=== PATIENT | male | born 1995 | race Caucasian/White ===

== ENCOUNTER 2022-09-14 19:31 | Inpatient (IN) | payer MEDICAID ==
[~2022-09-14] VITALS: Ht 162.6 cm; Wt 80.7 kg
--- NOTE | 2022-09-14 19:32 | NUR ---
PT BROUGHT TO BED 10 VIA WHEELCHAIR
[2022-09-14 19:34] VITALS: BP 121/64
[2022-09-14] MEDS ORDERED: ACETAMINOPHEN 325 MG TAB PO ONE (19:40)
[2022-09-14] MEDS ORDERED: NACL 0.9% 1,000 ML IV ONE (19:40)
[2022-09-14 20:14] LABS: HEMATOCRIT 38.7 % (36-52); HEMOGLOBIN 12.8 g/dL (12.0-18.0); MEAN CORPUSCULAR HEMOGLOBIN 31 pg (27-31); MEAN CORPUSCULAR HGB CONC 33 g/dL (33-37); MEAN CORPUSCULAR VOLUME 92.5 fL (80-94); PLATELET COUNT (AUTO) 227 K/uL (140-450); RED BLOOD CELL COUNT(AUTO) 4.18 MIL/uL (4.20-6.10); RED CELL DISTRIBUTION WIDTH 13.5 % (11.6-13.7); WHITE BLOOD COUNT (AUTO) 23.8 K/uL (4.8-10.8)
[2022-09-14 20:31] LABS: ALBUMIN 3.9 g/dL (3.4-5.0); ANION GAP 10.3 (8-16); ASPARTATE AMINOTRANSFERASE 17 U/L (15-37); CARBON DIOXIDE 29.1 mmol/L (21-32); CHLORIDE 98 mmol/L (98-107); CREATININE 0.9 mg/dL (0.6-1.3); GFR ARICAN-AMERICAN 130 mL/min (>90); GLUCOSE 131 mg/dL (74-106); POTASSIUM 3.4 mmol/L (3.5-5.1); SODIUM SERUM 134 mmol/L (136-145); TOTAL BILIRUBIN 2.1 mg/dL (0.0-1.0); UREA NITROGEN, BLOOD 16 mg/dL (7-18)
[2022-09-14 20:32] LABS: PROTHROMBIN TIME 10.6 secs (10.8-13.4)
[2022-09-14 20:41] LABS: LYMPHOCYTES % (MANUAL) 4 % (20-46)
[2022-09-14] MEDS ORDERED: VANCOMYCIN 1,000 MG in DEXTROSE 5% 250 ML IV ONE (21:00)
[2022-09-14] MEDS ORDERED: VANCOMYCIN 1,000 MG VIAL ONE (21:06)
--- NOTE | 2022-09-14 21:30 | NUR ---
Urine and swabs collected sent to lab
[2022-09-14 21:46] LABS: APPEARANCE,URINE CLEAR (CLEAR); BILIRUBIN,URINE 1+ (NEGATIVE); BLOOD, URINE NEGATIVE (NEGATIVE); COLOR,URINE YELLOW (YELLOW); LEUKOCYTE ESTERASE ,URINE NEGATIVE (NEGATIVE); NITRITE, URINE NEGATIVE (NEGATIVE); PH,URINE 6.5 (5.0-9.0); UGLUCOSE NEGATIVE (NEGATIVE)
[2022-09-14] MEDS ORDERED: cefTRIAXone 1,000 MG VIAL ONE (22:27)
--- NOTE | 2022-09-14 22:50 | NUR ---
Report given to Maria De Jesus ERVIN regarding transfer of care and made aware of elevated temperature and that Dr. Camilo was contacted. Pt is awake and responsive at this time.
--- NOTE | 2022-09-14 22:50 | NUR ---
Pt temperature rechecked [address] Camilo awaiting response.
[2022-09-14 22:55] VITALS: BP 130/70
--- NOTE | 2022-09-14 23:54 | NUR ---
relayed to lizzette smallwood latest bmp - no ivf order , - but got bolus from er , bp 130 /70 , still w/ fever . t 100. 5 f - tylenol given p.o 3 hrs ago in er . on reg . diet , denies pain at this time . will do tsb .
--- NOTE | 2022-09-15 | NUR ---
waiting response from dr Rola smallwood
--- NOTE | 2022-09-15 02:00 | NUR ---
TSB - RE CHECK TEMP 100.1 , WILL CONT. TO MONITOR . CALL LIGHT WITHIN REACH .
[2022-09-15] MEDS ORDERED: NACL 0.9% 1,000 ML IV SCH (02:40)
--- NOTE | 2022-09-15 03:00 | NUR ---
TOOK WOUND PHOTO BY USING HOSPITAL IPHONE , BECAUSE OUR [facility] MEMORY CARD STUCK UP ON THE PRINTER , 2 PEOPLE TRIED TO REMOVE IT BUT WE CAN'T . TRIED TO BORROW MEMORY CARD TPO ICU AND ER - BUT THEY SAID THERE IS NO MEMORY CARD AVAILABLE IN THIER UNIT - WILL ENDORSE .
[2022-09-15 05:12] LABS: BASOPHILS % (AUTO) 0.2 % (0.0-2.0); EOSINOPHILS % (AUTO) 0.1 % (0.0-4.0); HEMATOCRIT 35.9 % (36-52); HEMOGLOBIN 11.9 g/dL (12.0-18.0); LYMPHOCYTES # (AUTO) 1.1 K/uL (2.0-11.5); LYMPHOCYTES % (AUTO) 6.4 % (20.5-51.1); MEAN CORPUSCULAR HEMOGLOBIN 31 pg (27-31); MEAN CORPUSCULAR HGB CONC 33 g/dL (33-37); MEAN CORPUSCULAR VOLUME 92.4 fL (80-94); MONOCYTES # (AUTO) 0.9 K/uL (0.8-1.0); MONOCYTES % (AUTO) 4.8 % (1.7-9.3); NEUTROPHILS # (AUTO) 15.9 K/uL (1.8-7.7); NEUTROPHILS % (AUTO) 88.5 % (42.2-75.2); PLATELET COUNT (AUTO) 189 K/uL (140-450); RED BLOOD CELL COUNT(AUTO) 3.88 MIL/uL (4.20-6.10); RED CELL DISTRIBUTION WIDTH 13.7 % (11.6-13.7)
[2022-09-15 05:20] LABS: ANION GAP 11.5 (8-16); CARBON DIOXIDE 28.2 mmol/L (21-32); CREATININE 0.8 mg/dL (0.6-1.3); POTASSIUM 3.7 mmol/L (3.5-5.1)
[2022-09-15 06:00] VITALS: BP 118/63
--- NOTE | 2022-09-15 06:00 | NUR ---
ROUNDS , NO S/SX OF ACUTE DISTRESS NOTED
[2022-09-15 08:00] VITALS: BP 133/93
--- NOTE | 2022-09-15 08:07 | NUR ---
ENDORSED FOR CONT. OF CARE .
--- NOTE | 2022-09-15 09:09 | NUR ---
PATIENT HAS BEEN SCREENED AND CATEGORIZED HIGH NUTRITION RISK. PATIENT WILL BE SEEN WITHIN 1-2 DAYS OF ADMISSION. 09/15/22-09/16/22 FNS REFERRAL AND CONSULT RECEIVED FOR UNHEALED WOUND AND PRESSURE ULCERS ON 09/15/22. REVIEWED BY YENIFER MACIAS RD
[2022-09-15 12:00] VITALS: BP 111/63
[2022-09-15] MEDS ORDERED: VANCOMYCIN PER PHARMACY MC PRN (12:25)
[2022-09-15] MEDS ORDERED: POTASSIUM CHLORIDE 10 MEQ TABER PO PRN (12:25)
[2022-09-15] MEDS: NACL 0.9% 1,000 ML IV SCH (12:25)
[2022-09-15] MEDS ORDERED: ACETAMINOPHEN 325 MG TAB PO PRN (12:25)
[2022-09-15] MEDS ORDERED: ONDANSETRON 4 MG/2 ML VIAL IVP PRN (12:25)
[2022-09-15] MEDS ORDERED: MAG SULF 2000 MG/WATER PREMIX 50 ML IV PRN (12:25)
[2022-09-15] MEDS ORDERED: HYDROcodone/APAP 7.5/325 MG 1 TAB PO PRN (12:25)
[2022-09-15] MEDS: VANCOMYCIN HCL 750 MG in DEXTROSE 5% 250 ML IV SCH ×2 (13:00→20:15)
[2022-09-15 13:14] LABS: PROTHROMBIN TIME 10.9 secs (10.8-13.4)
[2022-09-15 13:28] LABS: AMYLASE 29 U/L (25-115); CHOL/HDL RATIO 1.5 (1-4.5); FREE T4 (FREE THYROXINE) 1.03 ng/dL (0.76-1.46); HDL CHOLESTEROL 78 mg/dL (40-60); LDL (CALC) 31 mg/dL (60-100); LIPASE 112 U/L (73-393); MAGNESIUM 1.8 mg/dL (1.8-2.4); PHOSPHORUS 2.3 mg/dL (2.5-4.9); THYROID STIMULATING HORMONE 0.08 uIU/mL (0.34-3.74); TRIGLYCERIDES 47 mg/dL (30-150)
--- NOTE | 2022-09-15 13:29 | NUR ---
WENT TO COMPLETE EKG ON PT.PT HAS A LARGE BANDAGE ACROSS HIS CHEST COVERING WOUNDS, RT UNABLE TO OBTAIN EKG AT THIS TIME. PT STATED HE WAS IN IN PAIN, RN NOTIFIED.
--- NOTE | 2022-09-15 13:30 | NUR ---
DC PLANNING ASSESSMENT COMPLETE PLEASE REFER TO ASSESSMENT FOR ADDITIONAL DETAILS PT REPORTS DC PLAN IS TO RETURN TO HIS MOTHERS HOME. PT REPORTS HIS MOTHER WILL ALLOW FOR HIM TO STAY WITH HER. PT REPORTS MOTHER WITH PROVIDE TRANSPORTATION, WHEN CLEARED MEDICALLY BY PHYSICIAN. PT ACCEPTED EMERGENCY ASSISTANCE,MEDICATION ASSISTANCE AND HOMELESS RESOURCES PROVIDED BY SW. Addendum: 09/15/22 at 1332 by Omar CH Amended: Links added.
--- NOTE | 2022-09-15 14:21 | NUR ---
DC PLANN[age] YRS OLD MALE PATIENT WAS ADMITTED FROM HOME WITH A DX OF SEPSIS, RT LOWER EXT CELLULITIS. PATIENT HAS NO MEDICAL HX. CXR SHOWED RIGHT BASE INFILTRATE/ATELECTASIS. RAPID COVID TEST NEGATIVE. US VENOUS RLE NO DVT. XRAY RT TABULA/FIBULA SHOWED SEVERELY COMMINUTED FRACTURE OF THE MID FIBULA WITH FRAGMENTS SEEN. WBC 23.8 ON ADMISSION. ADMINISTERED IVF, IV ABX VANCOMYCIN AND ROCEPHIN. CONSULTED WITH ORTHO. DC PLAN TO GO HOME WHEN STABLE CM TO FOLLOW.
--- NOTE | 2022-09-15 15:11 | NUR ---
09/15/22 RD INITIAL ASSESSMENT COMPLETED PLEASE REFER TO NUTRITION ASSESSMENT UNDER CARE ACTIVITY FOR ESTIMATED NUTRITIONAL NEEDS. 1. CONTINUE REGULAR DIET TOLERATED 2. RECOMMEND PROSOURCE BID FOR WOUND SUPPORT -PROVIDES 120 KCAL AND [address] TO FOLLOW-UP 7 DAYS, LOW RISK REVIEWED BY YENIFER MACIAS RD
[2022-09-15 16:00] VITALS: BP 119/77
[2022-09-15 18:04] LABS: BARBITURATE, URINE NEGATIVE ng/ml (NEG <=200); BENZODIAZEPINE, URINE NEGATIVE ng/mL (NEG <=200); CANNABINOID, URINE NEGATIVE ng/mL (NEG <=50); COCAINE, URINE NEGATIVE ng/mL (NEG <=300); OPIATE, URINE NEGATIVE ng/mL (NEG <=2000); PHENCYCLIDINE SCREEN,URINE NEGATIVE ng/mL (NEG <=25)
--- NOTE | 2022-09-15 19:30 | NUR ---
RECEIVED REPORT FROM MORNING SHIFT NURSE. PT IS AOX4, WITH RELATIVE BEDSIDE, ON BEDREST, ABLE TO VERBALIZE NEEDS AND ABLE TO FOLLOW COMMANDS. PT IS ON ROOM AIR AND ON RENAL DIET. PT HAS BEDSIDE URINALS AND HAS AN IV ON LEFT AC GAUGE 20 RUNNING WITH NS AT 50ML/HR. PT HAS WOUND ON RIGHT LOWER LEG. PT DENIES PAIN AND NO S/S OF RESPIRATORY DISTRESS NOTED. ALL SAFETY MEASURES IMPLEMENTED. BED IN LOW POSITION AND CALL LIGHT WITHIN REACH.
[2022-09-15 20:00] VITALS: BP 117/65
--- NOTE | 2022-09-15 20:00 | NUR ---
PT WAS MOVED TO ROOM 105A FROM 126B DUE TO WATER SPILL OF THE ROOM. ALL BELONGINGS WAS WITH THE PT. RELATIVE WAS ALSO AWARE. ALL SAFETY MEASURES IMPLEMENTED. BED IN LOW POSITION AND CALL LIGHT WITHIN REACH.
[2022-09-15] MEDS: DOCUSATE SODIUM 100 MG GELCAP PO SCH (20:18)
[2022-09-15] MEDS: ENOXAPARIN 80 MG/0.8 ML SYR SUBQ SCH (20:18)
--- NOTE | 2022-09-15 20:18 | NUR ---
ALL SCHEDULED AND PRESCRIBED MEDICATION WAS GIVEN TO PT PER MD ORDER. ALL SAFETY MEASURES IMPLEMENTED. BED IN LOW POSITION AND CALL LIGHT WITHIN REACH.
--- NOTE | 2022-09-15 22:16 | NUR ---
SCHEDULED AND PRESCRIBED MEDICATION WAS GIVEN TO PT PER MD ORDER. ALL SAFETY MEASURES IMPLEMENTED. BED IN LOW POSITION AND CALL LIGHT WITHIN REACH.
[2022-09-16] VITALS: BP 109/64
--- NOTE | 2022-09-16 | NUR ---
PT IS ON SLEEP. CHEST RISE AND FALL SYMMETRICALLY NOTED. RESPIRATION IS EVEN AND UNLABORED. ALL SAFETY MEASURES IMPLEMENTED. BED IN LOW POSITION AND CALL LIGHT WITHIN REACH.
--- NOTE | 2022-09-16 02:00 | NUR ---
CHECKED TH PT STILL ON SLEEP. CHEST RISE AND FALL SYMMETRICALLY NOTED. RESPIRATION IS EVEN AND UNLABORED. ALL SAFETY MEASURES IMPLEMENTED. BED IN LOW POSITION AND CALL LIGHT WITHIN REACH.
[2022-09-16 04:00] VITALS: BP 112/72
--- NOTE | 2022-09-16 04:00 | NUR ---
ASSISTED PT TO BATHROOM. CRANBERRY JUICE WAS ALSO GIVEN. NO COMPLAIN OF PAIN. NO S/S OF RESPIRATORY DISTRESS NOTED. ALL SAFETY MEASURES IMPLEMENTED. BED IN LOW POSITION AND CALL LIGHT WITHIN REACH.
[2022-09-16 04:17] LABS: BASOPHILS # (AUTO) 0.1 K/uL (0.00-0.22); BASOPHILS % (AUTO) 0.5 % (0.0-2.0); EOSINOPHILS # (AUTO) 0.2 K/uL (0-0.4); EOSINOPHILS % (AUTO) 1.7 % (0.0-4.0); HEMATOCRIT 39.3 % (36-52); HEMOGLOBIN 12.8 g/dL (12.0-18.0); LYMPHOCYTES # (AUTO) 3.6 K/uL (2.0-11.5); LYMPHOCYTES % (AUTO) 31.4 % (20.5-51.1); MEAN CORPUSCULAR HEMOGLOBIN 30 pg (27-31); MEAN CORPUSCULAR HGB CONC 33 g/dL (33-37); MEAN CORPUSCULAR VOLUME 92.8 fL (80-94); MONOCYTES # (AUTO) 1.2 K/uL (0.8-1.0); MONOCYTES % (AUTO) 10.6 % (1.7-9.3); NEUTROPHILS # (AUTO) 6.4 K/uL (1.8-7.7); NEUTROPHILS % (AUTO) 55.8 % (42.2-75.2); PLATELET COUNT (AUTO) 202 K/uL (140-450); RED BLOOD CELL COUNT(AUTO) 4.23 MIL/uL (4.20-6.10); RED CELL DISTRIBUTION WIDTH 13.9 % (11.6-13.7); WHITE BLOOD COUNT (AUTO) 11.5 K/uL (4.8-10.8)
[2022-09-16 04:29] LABS: ANION GAP 11.3 (8-16); CARBON DIOXIDE 29.3 mmol/L (21-32); CREATININE 0.8 mg/dL (0.6-1.3); POTASSIUM 3.6 mmol/L (3.5-5.1)
[2022-09-16 04:33] LABS: MAGNESIUM 1.8 mg/dL (1.8-2.4)
[2022-09-16] MEDS: VANCOMYCIN HCL 750 MG in DEXTROSE 5% 250 ML IV SCH (04:40)
--- NOTE | 2022-09-16 07:23 | NUR ---
PT IS STABLE. ENDORSED PT TO MORNING SHIFT NURSE FOR CONTINUITY OF CARE.
--- NOTE | 2022-09-16 07:24 | NUR ---
RECEIVED REPORT FROM RN MEDICAL SURGICAL NURSE FOR CONTINUITY OF CARE. PATIENT LYING DOWN IN BED, SLEEPING, AROUSABLE BY VOICE. NO DISTRESS NOTED. PAIN WITHIN TOLERABLE ON RLE. IV SITE INTACT, PATENT, INFUSING IVF PER MD ORDERS. REVIEWED PLAN OF CARE WITH PATIENT. VERBALIZED UNDERSTANDING. WILL CONTINUE TO MONITOR.
[2022-09-16 08:00] VITALS: BP 116/70
[2022-09-16] MEDS: NACL 0.9% 1,000 ML IV SCH (08:24)
[2022-09-16] MEDS: PANTOPRAZOLE 40 MG INJ VIAL IVP SCH (08:24)
[2022-09-16] MEDS: DOCUSATE SODIUM 100 MG GELCAP PO SCH ×2 (08:25→20:23)
[2022-09-16] MEDS: ENOXAPARIN 80 MG/0.8 ML SYR SUBQ SCH ×2 (08:30→20:27)
--- NOTE | 2022-09-16 08:31 | NUR ---
SCHEDULED MEDICATIONS DUE GIVEN. WILL CONTINUE TO MONITOR.
--- NOTE | 2022-09-16 11:42 | NUR ---
WOUND CARE NOTE: PT. ADMITTED WITH RLE WOUND. DR. DESAI CONSULTED NO SURGICAL INTERVENTION AT THIS TIME. RLE MULTIPLE DRY SCAB. LATERAL ASPECT 1X1X0.3CM WOUND ,WOUND BED YELLOW/BROW, SMALL AMOUNT PURULENT DRAINAGE, MILD ODOR, [place] WOUND SKIN DRY, INTACT,SOFT NO ERYTHEMA, PAIN 0/10. POC DISCUSSED WITH PT. PT. NEED REINFORCEMENT. POC DISCUSS WITH PRIMARY RN MEAGAN. RECOMMENDATIONS: -CLEANSE RLE WOUND WITH WOUND CARE SOLUTION, PAT DRY. APPLY ALGINATE DRESSING AND COVER WITH DRY DRESSING QD AND PRN IF SOILING -ELEVATE RLE WITH PILLOWS
[2022-09-16] MEDS: VANCOMYCIN 1,000 MG in DEXTROSE 5% 250 ML IV SCH ×2 (12:57→20:23)
--- NOTE | 2022-09-16 12:57 | NUR ---
SCHEDULED MEDICATIONS DUE GIVEN. WILL CONTINUE TO MONITOR.
[2022-09-16] MEDS ORDERED: ALGINATE ROPE MC SCH (13:00)
--- NOTE | 2022-09-16 15:30 | NUR ---
PATIENT LYING DOWN IN BED, NO DISTRESS NOTED. WILL CONTINUE TO MONITOR.
[2022-09-16 16:00] VITALS: BP 104/61
--- NOTE | 2022-09-16 17:30 | NUR ---
P.T. NOTES P.T. EVAL COMPLETED; REFER TO EVAL FOR DETAILS.
--- NOTE | 2022-09-16 19:12 | NUR ---
GAVE REPORT TO GAMMA FACILITIES OPERATOR NURSE FOR CONTINUITY OF CARE. PATIENT IN STABLE CONDITION.
--- NOTE | 2022-09-16 19:13 | NUR ---
RECEIVED REPORT FROM MORNING SHIFT NURSE. PT IS AOX4, WITH RELATIVE BEDSIDE, ON BEDREST, ABLE TO VERBALIZE NEEDS AND ABLE TO FOLLOW COMMANDS. PT IS ON ROOM AIR AND ON REGULAR DIET. PT HAS BEDSIDE URINALS AND HAS AN IV ON RIGHT AC GAUGE 22 RUNNING WITH NS AT 50ML/HR. PT HAS WOUND ON RIGHT LOWER LEG. PT DENIES PAIN AND NO S/S OF RESPIRATORY DISTRESS NOTED. ALL SAFETY MEASURES IMPLEMENTED. BED IN LOW POSITION AND CALL LIGHT WITHIN REACH.
--- NOTE | 2022-09-16 20:27 | NUR ---
ALL SCHEDULED AND PRESCRIBED MEDICATION WAS GIVEN TO PT PER MD ORDER. ALL SAFETY MEASURES IMPLEMENTED. BED IN LOW POSITION AND CALL LIGHT WITHIN REACH.
--- NOTE | 2022-09-16 21:45 | NUR ---
PT IS STABLE. ENDORSED PT TO BARBARA HAYNES DUE TO CHANGE OF PT ASSIGNMENT.
--- NOTE | 2022-09-16 22:50 | NUR ---
RECEIVED REPORT FROM RN: KLAUS FOR CONTINUATION OF CARE. PT IS STABLE AT THIS TIME, ALL SCHEDULED MEDICATIONS ADMINISTERED.
[2022-09-17] VITALS: BP 165/69
--- NOTE | 2022-09-17 01:41 | NUR ---
OBTAINED WOUND CULTURE ON RIGHT LEG. CLEANED AND CHANGED DRESSING.
[2022-09-17 04:00] VITALS: BP 102/65
[2022-09-17] MEDS: VANCOMYCIN 1,000 MG in DEXTROSE 5% 250 ML IV SCH (04:14)
[2022-09-17] MEDS: NACL 0.9% 1,000 ML IV SCH (04:25)
--- NOTE | 2022-09-17 04:49 | NUR ---
WHILE VANCOMYCIN TREATMENT WAS INFUSING, PT PULLED IV OUT. PT STATED HE DID NOT WANT THE IV SITE ANYMORE AND REFUSED A NEW ONE BE PLACED. PT STATED THAT HE BELIEVES HE WILL BE DISCHARGED TODAY AND DOES NOT WANT TO HAVE A NEW IV INSERTED. EXPLAINED TO THE PATIENT THE IMPORTANCE OF HAVING IV ACCESS AND FINISHING THE ANTIBIOTIC REGIMENT, BUT PATIENT STILL REFUSED. VANCOMYCIN MEDICATION WAS NOT FINISHED INFUSING WHEN PATIENT PULLED IV. WILL ENDORSE TO DAY SHIFT NURSE.
[2022-09-17 06:51] LABS: CARBON DIOXIDE 30.4 mmol/L (21-32); CREATININE 0.7 mg/dL (0.6-1.3); MAGNESIUM 1.6 mg/dL (1.8-2.4); PHOSPHORUS 4.4 mg/dL (2.5-4.9); POTASSIUM 3.4 mmol/L (3.5-5.1)
[2022-09-17 06:53] LABS: BASOPHILS # (AUTO) 0.1 K/uL (0.00-0.22); BASOPHILS % (AUTO) 0.6 % (0.0-2.0); EOSINOPHILS # (AUTO) 0.2 K/uL (0-0.4); EOSINOPHILS % (AUTO) 1.9 % (0.0-4.0); HEMATOCRIT 36.5 % (36-52); LYMPHOCYTES # (AUTO) 3.4 K/uL (2.0-11.5); LYMPHOCYTES % (AUTO) 35.7 % (20.5-51.1); MEAN CORPUSCULAR HEMOGLOBIN 31 pg (27-31); MEAN CORPUSCULAR HGB CONC 33 g/dL (33-37); MEAN CORPUSCULAR VOLUME 93.1 fL (80-94); MONOCYTES % (AUTO) 10.2 % (1.7-9.3); NEUTROPHILS # (AUTO) 4.9 K/uL (1.8-7.7); NEUTROPHILS % (AUTO) 51.6 % (42.2-75.2); PLATELET COUNT (AUTO) 191 K/uL (140-450); RED BLOOD CELL COUNT(AUTO) 3.92 MIL/uL (4.20-6.10); RED CELL DISTRIBUTION WIDTH 13.4 % (11.6-13.7); WHITE BLOOD COUNT (AUTO) 9.5 K/uL (4.8-10.8)
--- NOTE | 2022-09-17 07:20 | NUR ---
RECEIVED PT FROM TYPE SOLDERING MACHINE TENDER NURSE PT IS SLEEPING. VISIBLE CHEST RISE/FALL. RESPIRATIONS EVEN AND UNLABORED ON RA. SKIN WARM AND DRY. NO IV ACCESS. ALL SAFETY PRECAUTIONS IN PLACE. CALL LIGHT WITHIN REACH.
[2022-09-17 08:00] VITALS: BP 113/74
[2022-09-17] MEDS: DOCUSATE SODIUM 100 MG GELCAP PO SCH (08:31)
[2022-09-17] MEDS: ENOXAPARIN 80 MG/0.8 ML SYR SUBQ SCH (08:35)
--- NOTE | 2022-09-17 08:35 | NUR ---
ADMINISTERED SCHEDULED MED AND PRN POTASSIUM. PT REFUSING LOVENOX, STATES " I DONT WANT THE SHOT, IM TIRED OF GETTING SHOTS" PT EDUCATED ON RISKS/BENEFITS. PATIENT REFUSED AGAIN STATES "I JUST WANT TO LEAVE, IM TIRED OF THIS."
[2022-09-17] MEDS: PANTOPRAZOLE 40 MG INJ VIAL IVP SCH (11:24)
== END 2022-09-17 13:20 | disposition left against medical advice (07) | DRG 720 ==
LOC: MED 19:31 → MTU 21:30 → MMU 22:26 → MTU 09-15 20:00
DX: A41.9 Sepsis, unspecified organism (principal); J69.0 Pneumonitis due to inhalation of food and vomit; E87.1 Hypo-osmolality and hyponatremia; E66.9 Obesity, unspecified; Z20.822 Contact with and (suspected) exposure to COVID-19; Z59.00 Homelessness unspecified; Z68.30 Body mass index [BMI] 30.0-30.9, adult; L03.115 Cellulitis of right lower limb; S82.451D Displaced comminuted fracture of shaft of right fibula, subsequent encounter for closed fracture with routine healing
CPT/HCPCS: 36415; 71045; 73590; 80048; 80053; 80202; 80305; 81003; 82140; 82150; 82550; 82553; 83036; 83605; 83690; 83735; 83880; 84100; 84439; 84443; 84484; 85025; 85610; 85651; 85730; 86140; 87040; 87070; 87075; 87081; 87086; 93005; 93971; 96361; 96365; 97112; 97116; 97163-GP; 97530; 99291; C9113; J0696; J1644; J1650; J3370; J3475; J7060; Q0092